=== PATIENT | female | born 1950 | race Caucasian/White ===

== ENCOUNTER → 2016-08-12 | Outpatient (CLI) | payer OTHER ==
[~2016-08-12] MED LIST: ASPI81TA85 PO; ATOR1TAB19 PO; CLIN1GEL5 EXT; REST0.05 OU; VIAC8.5C PO; VITA500C24 PO
--- NOTE | 2016-08-17 08:59 | DEXA ---
AP SPINE L1 - L4 1.159 -0.3 1.2 LT FEMUR TOTAL 0.889 -0.9 0.1 RT FEMUR TOTAL 0.935 -0.6 0.5 TOTAL BODY TOTAL OTHER DUAL FEMUR FRAX* ASSESSMENT Risk factors: History of fracture (adult). 10 year probability of fracture Major osteoporotic fracture 16.9 % Hip fracture 0.4 % COMMENTS: Normal bone densitometry of the spine. There is low bone density of the hips. The decreased density of the spine does represent a significant change. The decreased density of the left hip does represent significant change. The increased density of the right hip does represent a significant change. The density of the spine has decreased 9.9% since the initial exam on 2001. The spine density has decreased 7.8% since the most recent exam on 08/02/2014. The density of the left hip has decreased 9.2% since the initial exam on 2001. The density of the left hip has decreased 5.0% since the most recent exam on . The density of the right hip has decreased 4.3% since the initial exam on 2001. The density of the right hip has increased 2.7% since the most recent exam on . FOLLOW-UP: Recommendation for the next bone density exam: 2 years. HARSHAL
== END ==
LOC: M WHC 07:42
PROVIDERS: ATTEND Nurse Practitioner Adult Health
DX: M85.80 Other specified disorders of bone density and structure, unspecified site (principal)

== ENCOUNTER → 2016-08-12 | Outpatient (CLI) | payer OTHER ==
--- NOTE | 2016-08-12 10:27 | REPMRS ---
Patient History The patient states she had a clinical breast exam in July 2016. Patient has history of breast cancer at age 45. No known family history of cancer. Digital Mammo Screening Bilat: August 12, 2016 - Exam #: [id number] Bilateral CC and MLO view(s) were taken. Technologist: Reyna Pedroza, Technologist Prior study comparison: August 06, 2015, bilateral digital mammo screening bilat performed at [facility]. July 10, 2014, bilateral digital mammo screening bilat performed at [facility]. FINDINGS: The breast tissue is heterogeneously dense. This may lower the sensitivity of mammography. There has been no change in the appearance of the mammogram from the prior studies. There is a moderate amount of residual fibroglandular tissue which is fairly symmetric. There is no interval development of dominant mass, areas of architectural distortion, or clustered microcalcification typical of malignancy. ASSESSMENT: BI-RADS/ACR category 1 mammogram. Negative. Recommendation Routine screening mammogram in 1 year (for women over age 40). This mammogram was interpreted with the aid of an FDA-approved computer-aided dectection system. Electronically Signed By: Ilya Cheng MD 08/12/16 3513
== END ==
LOC: M RAD 08:46
PROVIDERS: ATTEND Nurse Practitioner Adult Health
DX: Z12.31 Encounter for screening mammogram for malignant neoplasm of breast (principal); Z85.3 Personal history of malignant neoplasm of breast

== ENCOUNTER → 2016-11-02 | Outpatient (REF) | payer OTHER | LOC: M LAB REF 11:04 | PROVIDERS: ATTEND Nurse Practitioner Adult Health | DX: R30.0 Dysuria (principal) ==

== ENCOUNTER → 2017-08-23 | Outpatient (CLI) | payer MEDICARE, OTHER | LOC: M WHC 10:32 | DX: Z12.31 Encounter for screening mammogram for malignant neoplasm of breast (principal); Z85.3 Personal history of malignant neoplasm of breast; Z92.21 Personal history of antineoplastic chemotherapy; Z92.3 Personal history of irradiation; Z98.890 Other specified postprocedural states | CPT/HCPCS: 76830 ==

== ENCOUNTER → 2017-08-24 | Outpatient (CLI) | payer MEDICARE, OTHER | LOC: M LRY 10:33 | DX: M25.552 Pain in left hip (principal) | CPT/HCPCS: 73502; G0463 ==

== ENCOUNTER → 2018-03-20 | Outpatient (CLI) | payer MEDICARE, OTHER | LOC: M LRY 09:39 | DX: M25.712 Osteophyte, left shoulder (principal); M25.512 Pain in left shoulder | CPT/HCPCS: 73030; G0463 ==

== ENCOUNTER → 2018-12-08 | Outpatient (REF) | payer MEDICARE, OTHER ==
[~2018-12-08] MED LIST changes: -VIAC8.5C PO; +VIACTIV 500-5001 CHW PO
== END ==
LOC: M LAB LCGH 13:21
PROVIDERS: ATTEND Obstetrics & Gynecology
DX: Z01.411 Encounter for gynecological examination (general) (routine) with abnormal findings (principal)

== ENCOUNTER → 2019-01-01 | Outpatient (CLI) | payer MEDICARE, OTHER ==
[~2019-01-01] MED LIST changes: +HAIR1CHW PO; +OCUVTAB4 PO; +OMEP40CA97 PO; +VIAC1CHW PO
--- NOTE | 2019-01-01 10:51 | REP ---
BILATERAL SCREENING DIGITAL MAMMOGRAM WITH 3D TOMOSYNTHESIS: There are no palpable abnormalities or other breast complaints. The the patient states she had a clinical breast examination there is, 2018. The the patient states she performs self-breast examinations four times per year. The Tyrer Cuzick Score is: NA. The patient has a history of left breast carcinoma at age 34. Comparisons are 07/10/2014 and 08/06/2015. The breasts are heterogeneously dense, which could obscure small masses. There is no dominant mass, micro calcific cluster or architectural distortion that would indicate malignancy. There are chronic post-treatment changes in the left breast, unchanged. There are no additional findings on 3D tomosynthesiss. There is no change from the prior studies. Impression: BIRADS/ACR category 2 mammogram. Nine findings. Recommendation: Routine annual screening mammography. Because of the increased breast density, annual adjunctive breast MRI in addition to screening mammography is recommended. These can be performed at alternating six month intervals. This mammogram was interpreted with the aid of a FDA approved computer-aided detection system. A. Negative mammogram reports should not delay biopsy if a dominant or clinically suspicious mass is present. B. Not all breast cancers are identified by mammography or tomosynthesis. C. Adenosis and dense breasts may obscure an underlying neoplasm. Patient letter M1 dense breasts. Electronically Signed by Ilya Barrios MD 01/01/2019 10:43 A
== END ==
LOC: M WHC 08:40
DX: Z12.31 Encounter for screening mammogram for malignant neoplasm of breast (principal)

== ENCOUNTER → 2019-03-01 | Outpatient (CLI) | payer MEDICARE, OTHER ==
[~2019-03-01] MED LIST changes: -HAIR1CHW PO; -OCUVTAB4 PO; -OMEP40CA97 PO; -VIAC1CHW PO
[2019-03-01 11:10] LABS: HEMATOCRIT 41.3 % (36.0-47.0); HEMOGLOBIN 12.7 g/dl (12.0-15.5); MEAN CORPUSCULAR HEMOGLOBIN 27.6 pg (27.0-33.0); MEAN CORPUSCULAR HGB CONC 30.8 g/dl (32.0-36.5); MEAN CORPUSCULAR VOLUME 89.8 fl (80.0-96.0); PLATELET COUNT, AUTOMATED 230 10^3/uL (150-450)
[2019-03-03 00:08] LABS: ENDOMYSIAL ABY IgA Negative (Negative); TISSUE TRANSGLUTAMINASE IgA <2 U/mL (0-3); TISSUE TRANSGLUTAMINASE IgG <2 U/mL (0-5)
== END ==
LOC: M LAB 09:51
PROVIDERS: ATTEND Nurse Practitioner
DX: K20.9 Esophagitis, unspecified (principal); R12 Heartburn

== ENCOUNTER 2019-06-21 13:36 | Emergency (ER) | payer MEDICARE, OTHER ==
[~2019-06-21] VITALS: Ht 157.5 cm; Wt 71.0 kg
[~2019-06-21 13:36] MED LIST changes: +HAIR1CHW PO; +OCUVTAB4 PO; +OMEP40CA97 PO; +VIAC1CHW PO
--- NOTE | 2019-06-21 15:00 | REP ---
Portable chest x-ray: Single view. History: Chest pain. Comparison study: May 30, 2008. Findings: Monitoring electrodes are seen overlying the chest. There are surgical clips again noted in the soft tissues of the left axilla. Minimal linear fibrosis is seen at the bases. No infiltrate is seen. There is a dextroconvex curvature in the mid thoracic spine. The heart is not enlarged. Pulmonary vasculature is not increased. Impression: No acute disease. Minimal bibasilar linear fibrosis. Thoracic scoliosis. Electronically Signed by Michael Nichole MD 06/21/2019 08:06 P
[2019-06-21 15:03] LABS: BASO % 0.7 % (0.0-1.0); EOS # 0.2 10^3/uL (0.0-0.5); EOS % 3.4 % (0.0-3.0); HEMATOCRIT 38.9 % (36.0-47.0); HEMOGLOBIN 12.6 g/dl (12.0-15.5); LYMPH # 1.7 10^3/uL (1.5-5.0); MEAN CORPUSCULAR HGB CONC 32.4 g/dl (32.0-36.5); MEAN CORPUSCULAR VOLUME 86.4 fl (80.0-96.0); MONO # 0.6 10^3/uL (0.0-0.8); MONO % 8.9 % (0.0-5.0); NEUTROPHILS # 3.6 10^3/uL (1.5-8.5); NEUTROPHILS % 58.7 % (36.0-66.0); PLATELET COUNT, AUTOMATED 195 10^3/uL (150-450); WHITE BLOOD COUNT 6.2 10^3/uL (4.0-10.0)
[2019-06-21 15:35] LABS: BLOOD UREA NITROGEN 17 MG/DL (7-18); CALCIUM LEVEL 9.2 MG/DL (8.8-10.2); CARBON DIOXIDE LEVEL 30 MEQ/L (21-32); CHLORIDE LEVEL 108 MEQ/L (98-107); CK-MB VALUE MASS 1.1 NG/ML (<3.6); CPK CREATINE PHOSPHOKINASE 82 U/L (26-192); CREATININE FOR GFR 0.98 MG/DL (0.55-1.30); GLOMERULAR FILTRATION RATE > 60.0 (>45); GLUCOSE, FASTING 97 MG/DL (70-100); MB/CK RELATIVE INDEX 1.34 (< OR =4); POTASSIUM SERUM 4.2 MEQ/L (3.5-5.1); SODIUM LEVEL 143 MEQ/L (136-145); TROPONIN I < 0.02 NG/ML (< 0.10)
[2019-06-21] MEDS ORDERED: ISOVUE-370 76% 100ML VIAL (Q9967) As Ordered ONE (16:00)
[2019-06-21 16:19] LABS: INR 0.98; PROTHROMBIN TIME 12.7 SECONDS (11.8-14.0)
[2019-06-21 16:20] LABS: PARTIAL THROMBOPLASTIN TIME 24.5 SECONDS (25.0-38.4)
[2019-06-21 17:28] VITALS: BP 141/62
--- NOTE | 2019-06-21 17:32 | REP ---
CT pulmonary angiogram: With IV contrast. History: Chest pain, possible pulmonary embolus. Comparison studies: Comparison chest CT study July 22, 2009. Contrast dose: 75 mL of Isovue [address] technique: Helical scanning is acquired and overlapping 1.5 mm and contiguous 3 mm axial images are reformatted. In addition, maximum intensity projection and multiplanar re-formation images are generated in sagittal and coronal imaging projections. CT pulmonary angiographic findings: There is good opacification in the pulmonary arterial tree. There is no CT evidence of pulmonary embolism. Thoracic aorta shows no evidence of aneurysm or dissection. There is a very small sliding-type hiatal hernia. No pleural or pericardial effusion is seen. No hilar or mediastinal mass or adenopathy is observed. There is minimal linear fibrosis in the left lung base. There are subpleural fibrotic changes along the left anterolateral chest wall with postoperative changes in the overlying left breast suggesting postradiation change, post treatment for left breast carcinoma. No bony destructive or blastic change is appreciated. There is a mild dextroconvex thoracic curvature. No adrenal lesion is seen. The visualized upper abdominal structures are unremarkable. No pulmonary nodule or mass lesion is seen. No focal infiltrate is observed. Impression: No CT evidence of pulmonary embolus. Post left breast lumpectomy and radiation therapy treatment changes with minimal linear fibrosis along the left anterolateral chest wall. Small sliding hiatal hernia. Otherwise no acute disease. Electronically Signed by Michael Nichole MD 06/21/2019 08:13 P
--- NOTE | 2019-06-21 21:11 | ECGEPIP ---
[facility] - ED Test Date: 2019-06-21 Pat Name: KARELY CHU Department: Room: - Gender: Female Picture Hanger: : 1950 Requested By: Hien Alonso Order Number: [id number] Reading MD: Paolo Rodriguez Measurements Intervals Manning Rate: 100 P: 41 MD: 162 QRS: -19 QRSD: 97 T: 29 QT: 347 QTc: 447 Interpretive Statements SINUS TACHYCARDIA POSSIBLE LEFT ATRIAL ENLARGEMENT POOR R WAVE PROGRESSION NO PRIORS FOR COMPARISON INCOMPLETE RIGHT BUNDLE BRANCH BLOCK Electronically Signed on 06-21-2019 21:11:40 EST by Paolo Rodriguze
== END 2019-06-21 17:30 | disposition home or self-care (01) ==
LOC: M ED 13:36
DX: R07.89 Other chest pain (principal); R00.0 Tachycardia, unspecified; I45.19 Other right bundle-branch block; M41.84 Other forms of scoliosis, thoracic region; Z85.3 Personal history of malignant neoplasm of breast; Z92.21 Personal history of antineoplastic chemotherapy; Z92.3 Personal history of irradiation; Z79.82 Long term (current) use of aspirin; Z79.899 Other long term (current) drug therapy; Z88.1 Allergy status to other antibiotic agents; Z91.018 Allergy to other foods
CPT/HCPCS: 71045; 71275; 80048; 82550; 82553; 84484; 85025; 85610; 85730; 93005; 93041; 94760; 99285; Q9967

== ENCOUNTER → 2019-12-05 | Outpatient (CLI) | payer MEDICARE, OTHER ==
[~2019-12-05] MED LIST changes: -ASPI81TA85 PO; +ASPI81TA86 PO
--- NOTE | 2020-01-11 11:03 | REP ---
BILATERAL LOWER EXTREMITY ARTERIAL DOPPLER ULTRASOUND HISTORY: Atherosclerosis. Intermittent claudication bilateral legs. FINDINGS: Ankle brachial indices are normal measured at 1.14 on the right and 1.08 on the left. Mild plaquing is seen bilaterally. Triphasic and biphasic waveforms are noted throughout, relatively normal. No high-grade stenosis or occlusion is seen. BILATERAL LOWER EXTREMITY ARTERIAL DOPPLER VELOCITY PSV RIGHT (cm/s) PSV LEFT (cm/s) NURSE FIRST AID 104 144 Profunda 80 70 Proximal SFA 113 101 Mid-SFA 97 105 Distal SFA 73 78 Popliteal 58/69 56/64 Proximal LAILA 94 49 Tibioperoneal trunk 69 58 Proximal TOWEL HEMMER 79 72 Distal TOWEL HEMMER 88 66 Distal LAILA 122 81 MTDD
== END ==
LOC: M RAD 12:17
PROVIDERS: ATTEND Physician Assistant
DX: I70.213 Atherosclerosis of native arteries of extremities with intermittent claudication, bilateral legs (principal)

== ENCOUNTER → 2019-12-20 | Outpatient (CLI) | payer MEDICARE, OTHER ==
--- NOTE | 2020-01-15 12:48 | REPPI ---
LEFT RIB SERIES CLINICAL: Left-sided rib pain. TECHNIQUE: Frontal view of the chest with four views of the left hemithorax. FINDINGS: Frontal view of the chest demonstrates chronic scoliosis and no acute cardiopulmonary process. Multiple views of the left hemithorax demonstrates no obvious acute left rib fracture. IMPRESSION: No evidence for left rib fracture or pathology. MTDD
== END ==
LOC: M PLAIMG 08:11
DX: R07.81 Pleurodynia (principal)

== ENCOUNTER → 2019-12-20 | Outpatient (CLI) | payer MEDICARE, OTHER ==
--- NOTE | 2020-01-09 13:15 | DEXA ---
AP SPINE L1 - L4 1.177 -0.1 1.5 LT FEMUR TOTAL 0.907 -0.8 0.5 LT NECK 0.826 -1.5 0.0 RT FEMUR TOTAL 0.937 -0.6 0.8 RT NECK 0.835 -1.5 0.1 TOTAL BODY TOTAL OTHER COMMENTS: Normal bone densitometry of the spine. There is low bone density of the hips. The increased density of the spine does not represent a significant change. The increased density of the left hip does represent significant change. The increased density of the right hip does represent significant change. The density of the spine has decreased 8.5% since the initial exam on 05/23/2001. The increased 1.6% since the most recent exam on 08/12/2016. The density of the left hip has decreased 7.4% since the initial exam on 05/23/2001. The density of the left hip has increased 2.0% since the most recent exam on 08/12/2016. The density of the right hip has decreased 4.1% since the initial exam on 05/23/2001. The density of the right hip has increased 0.2% since the most recent exam on 08/12/2016. FOLLOW-UP: Recommendation for the next bone density exam: 2 years. HARSHAL
--- NOTE | 2020-01-15 12:51 | REP ---
NONVASCULAR EXTREMITY ULTRASOUND CLINICAL: Palpable mass under left breast. TECHNIQUE: Real-time blanchard scale and color Doppler evaluation using linear high frequency transducer. FINDINGS: Directed ultrasound examination at the site of presumed palpable mass demonstrates normal subcutaneous tissue and musculature. No abnormal fluid collection or mass lesion. No obvious discrete lipoma. IMPRESSION: No obvious abnormality by direct sonographic evaluation. MTDD
== END ==
LOC: M WHC 07:16
DX: N95.8 Other specified menopausal and perimenopausal disorders (principal); D17.9 Benign lipomatous neoplasm, unspecified; M85.88 Other specified disorders of bone density and structure, other site; M85.851 Other specified disorders of bone density and structure, right thigh; R29.898 Other symptoms and signs involving the musculoskeletal system

== ENCOUNTER → 2020-01-03 | Outpatient (CLI) | payer MEDICARE, OTHER ==
--- NOTE | 2020-01-03 11:02 | REPMRS ---
Patient History The patient states she had a clinical breast exam in 2019. Family history of endometrial cancer at age 50 or over in mother, breast cancer at age 68 in sister, breast cancer at age 30 in niece. Lumpectomy of the left breast, 1995. Malignant lumpectomy of the left breast, 1995. Radiation therapy of the left breast, 1995. No Hormone Replacement Therapy Digital Woman Screen Mammo: January 03, 2020 - Exam #: [id number] Bilateral CC and MLO view(s) were taken. Technologist: Jacquelin Bobby, Technologist Prior study comparison: January 01, 2019, bilateral digital woman screen mammo performed at [facility]. August 23, 2017, digital woman screen mammo performed at [facility]. August 12, 2016, bilateral digital mammo screening bilat, performed at [facility]. FINDINGS: The breast tissue is heterogeneously dense. This may lower the sensitivity of mammography. The Volpara volumetric breast density category is: C. There are stable post treatment changes in the left breast. There is a moderate amount of heterogeneously dense fibroglandular tissue which is fairly symmetric. There is no interval development of dominant mass, architectural distortion, or grouped microcalcification typical of malignancy. There has been no change in the appearance of the mammogram from the prior studies. 3-D tomosynthesis shows no additional findings. Assessment: BI-RADS/ACR category 2 mammogram. Benign Findings. Recommendation Routine screening mammogram of both breasts in 1 year (for women over age 40). This mammogram was interpreted with the aid of an FDA-approved computer-aided dectection system. Electronically Signed By: Tom Nichole MD 01/03/20 1537
== END ==
LOC: M WHC 08:41
DX: Z12.31 Encounter for screening mammogram for malignant neoplasm of breast (principal); Z80.49 Family history of malignant neoplasm of other genital organs; Z85.3 Personal history of malignant neoplasm of breast; Z92.3 Personal history of irradiation

== ENCOUNTER → 2021-01-08 | Outpatient (CLI) | payer MEDICARE, OTHER ==
[~2021-01-08] MED LIST changes: +OMEP40CA4 PO; -OMEP40CA97 PO
--- NOTE | 2021-01-08 09:28 | REPMRS ---
Patient History The patient states she had a clinical breast exam in December 2020. Patient has history of cancer in the left breast at age 44, had previous chemotherapy at age 44, has history of other cancer at age 34, and is nulliparous. Family history of endometrial cancer at age 50 or over in mother, breast cancer at age 68 in sister, breast cancer at age 30 in niece. Lumpectomy of the left breast, 1995. Malignant lumpectomy of the left breast, 1995. Radiation therapy of the left breast, 1995. Took tamoxifen for 5 years. Patient states no breast complaints today. Patient has signed MRS History Sheet. Digital Woman Screen Mammo: January 08, 2021 - Exam #: [id number] Bilateral CC and MLO view(s) were taken. Technologist: Brooklyn Carlson, Technologist Prior study comparison: January 03, 2020, bilateral digital woman screen mammo performed at [facility]. January 01, 2019, bilateral digital woman screen mammo performed at [facility]. August 23, 2017, digital woman screen mammo performed at [facility]. FINDINGS: The breast tissue is heterogeneously dense. This may lower the sensitivity of mammography. The Volpara volumetric breast density category is: C. There are stable post treatment changes in the left breast. There is a moderate amount of heterogeneously dense fibroglandular tissue which is fairly symmetric. There is no interval development of dominant mass, architectural distortion, or grouped microcalcification typical of malignancy. There has been no change in the appearance of the mammogram from the prior studies. 3-D tomosynthesis shows no additional findings. Assessment: BI-RADS/ACR category 2 mammogram. Benign Findings. Recommendation Routine screening mammogram of both breasts in 1 year (for women over age 40). This mammogram was interpreted with the aid of an FDA-approved computer-aided dectection system. Electronically Signed By: Tom Nichole MD 01/08/21 0928
== END ==
LOC: M WHC 07:42
DX: Z12.31 Encounter for screening mammogram for malignant neoplasm of breast (principal); Z85.3 Personal history of malignant neoplasm of breast; Z92.21 Personal history of antineoplastic chemotherapy; Z80.49 Family history of malignant neoplasm of other genital organs; Z80.3 Family history of malignant neoplasm of breast

== ENCOUNTER → 2021-06-18 | Outpatient (CLI) | payer MEDICARE, OTHER ==
[~2021-06-18] MED LIST changes: +CVS-161 PO; +FAMO20TA PO; +OMEP10CASR PO
== END ==
LOC: M LABSMTC 09:44
PROVIDERS: ATTEND Anesthesiology
DX: Z11.52 Encounter for screening for COVID-19 (principal)

== ENCOUNTER 2021-06-23 10:39 | Day surgery (SDC) | payer MEDICARE, OTHER ==
[~2021-06-23] VITALS: Ht 154.9 cm; Wt 67.6 kg
[~2021-06-23 10:39] MED LIST changes: +NS 1,000 ML IV ONE
[2021-06-23] MEDS ORDERED: propofoL 200 MG/20 ML VIAL As Ordered ONE ×2 (11:39→11:40)
[2021-06-23] MEDS ORDERED: LIDOCAINE 2% 100MG/5ML SDV (FOR ANES.) As Ordered ONE (11:40)
[2021-06-23] MEDS ORDERED: LABETALOL 100MG/20ML VIAL As Ordered ONE (13:43)
[2021-06-23 14:20] VITALS: BP 118/76
== END 2021-06-23 14:34 | disposition home or self-care (01) ==
LOC: M OPP 10:39
PROVIDERS: ATTEND Surgery
DX: K62.5 Hemorrhage of anus and rectum (principal); R12 Heartburn; M19.90 Unspecified osteoarthritis, unspecified site; Z85.3 Personal history of malignant neoplasm of breast; Z79.899 Other long term (current) drug therapy

== ENCOUNTER → 2022-01-12 | Outpatient (CLI) | payer MEDICARE, OTHER ==
[~2022-01-12] MED LIST changes: -NS 1,000 ML IV ONE
== END ==
LOC: M WHC 08:39
PROVIDERS: ATTEND Obstetrics & Gynecology
DX: Z12.31 Encounter for screening mammogram for malignant neoplasm of breast (principal); Z85.3 Personal history of malignant neoplasm of breast

== ENCOUNTER → 2022-05-14 | Outpatient (CLI) | payer MEDICARE, OTHER ==
[2022-05-14 13:43] LABS: ALKALINE PHOSPHATASE 81 U/L (46-116); ALT/SGPT 24 U/L (7.0-40); AST/SGOT 28 U/L (<34); BILIRUBIN,TOTAL 0.5 MG/DL (0.3-1.2); BLOOD UREA NITROGEN 23 MG/DL (9-23); CALCIUM LEVEL 8.9 MG/DL (8.3-10.6); CARBON DIOXIDE LEVEL 26 MMOL/L (20-31); CHLORIDE LEVEL 108 MMOL/L (98-107); CHOLESTEROL LEVEL 140 MG/DL (<200); CHOLESTEROL RISK RATIO 2.25 (<5); CREATININE FOR GFR 0.95 MG/DL (0.55-1.30); GLOMERULAR FILTRATION RATE > 60.0 (>45); GLUCOSE, FASTING 91 MG/DL (74-106); HDL CHOLESTEROL 62.1 MG/DL (>40); LDL CHOLESTEROL 71.5 MG/DL (<100); NON-HDL-C 78 MG/DL; POTASSIUM SERUM 4.5 MMOL/L (3.5-5.1); SODIUM LEVEL 142 MMOL/L (136-145); TOTAL PROTEIN 7.1 G/DL (5.7-8.2); TRIGLYCERIDES LEVEL 32 MG/DL (<150)
== END ==
LOC: M WUC 09:36
PROVIDERS: ATTEND Physician Assistant
DX: E78.5 Hyperlipidemia, unspecified (principal); R06.02 Shortness of breath

== ENCOUNTER → 2022-07-06 | Outpatient (CLI) | payer MEDICARE, OTHER ==
[2022-07-06 17:59] LABS: BASO % 0.6 % (0.0-1.0); EOS # 0.1 10^3/uL (0.0-0.5); EOS % 1.1 % (0.0-3.0); HEMATOCRIT 39.5 % (36.0-47.0); HEMOGLOBIN 12.3 g/dl (12.0-15.5); LYMPH # 1.4 10^3/uL (1.5-5.0); LYMPH % 18.9 % (24.0-44.0); MEAN CORPUSCULAR HEMOGLOBIN 27.6 pg (27.0-33.0); MEAN CORPUSCULAR HGB CONC 31.1 g/dl (32.0-36.5); MEAN CORPUSCULAR VOLUME 88.8 fl (80.0-96.0); MONO # 0.5 10^3/uL (0.0-0.8); NEUTROPHILS # 5.2 10^3/uL (1.5-8.5); NEUTROPHILS % 71.8 % (36.0-66.0); PLATELET COUNT, AUTOMATED 205 10^3/uL (150-450); RED BLOOD COUNT 4.45 10^6/uL (4.00-5.40); WHITE BLOOD COUNT 7.3 10^3/uL (4.0-10.0)
[2022-07-06 18:09] LABS: C REACTIVE PROTEIN QUANTITATIV < 0.40 MG/DL (<1.0)
[2022-07-06 18:11] LABS: RHEUMATOID FACTOR QUANT < 3.5 IU/ML (<14)
[2022-07-06 18:32] LABS: ERYTHROCYTE SEDIMENTATION RATE 36 mm/hr (0-30)
== END ==
LOC: M PLALAB 15:49
PROVIDERS: ATTEND Orthopaedic Surgery
DX: M47.892 Other spondylosis, cervical region (principal)

== ENCOUNTER → 2023-08-02 | Outpatient (CLI) | payer MEDICARE, OTHER | LOC: M RAD 11:53 | PROVIDERS: ATTEND Chiropractor | DX: M99.03 Segmental and somatic dysfunction of lumbar region (principal); M51.36 Other intervertebral disc degeneration, lumbar region; M99.01 Segmental and somatic dysfunction of cervical region; M54.13 Radiculopathy, cervicothoracic region; M99.02 Segmental and somatic dysfunction of thoracic region; M51.34 Other intervertebral disc degeneration, thoracic region; M85.88 Other specified disorders of bone density and structure, other site; M41.84 Other forms of scoliosis, thoracic region ==

== ENCOUNTER → 2024-01-16 | Outpatient (CLI) | payer MEDICARE | LOC: M WHC 07:37 | PROVIDERS: ATTEND Nurse Practitioner Family | DX: Z12.31 Encounter for screening mammogram for malignant neoplasm of breast (principal); R92.333 Mammographic heterogeneous density, bilateral breasts; Z85.3 Personal history of malignant neoplasm of breast ==

== ENCOUNTER → 2024-07-30 | Outpatient (CLI) | payer MEDICARE | LOC: M WUC 13:21 | PROVIDERS: ATTEND Physician Assistant | DX: R06.02 Shortness of breath (principal) ==

== ENCOUNTER 2024-10-26 08:38 | Day surgery (SDC) | payer MEDICARE ==
[~2024-10-26] VITALS: Ht 157.5 cm; Wt 66.0 kg
[~2024-10-26 08:38] MED LIST changes: +AMLO1TAB24 PO; +BIOT5CAP8 PO; +FURO20TA2 PO; +POTA-150 PO; +VITATAB73 PO
[2024-10-26] MEDS ORDERED: LIDOCAINE 2% 100 MG/5 ML SDV (FOR ANES.) As Ordered ONE (08:58)
[2024-10-26 10:21] VITALS: BP 98/63; O2SAT 98
== END 2024-10-26 10:30 | disposition home or self-care (01) ==
LOC: M OPP 08:38
PROVIDERS: ATTEND Surgery
DX: K44.9 Diaphragmatic hernia without obstruction or gangrene (principal); K31.7 Polyp of stomach and duodenum; K31.89 Other diseases of stomach and duodenum; K20.90 Esophagitis, unspecified without bleeding; Z88.1 Allergy status to other antibiotic agents; Z91.018 Allergy to other foods; Z79.899 Other long term (current) drug therapy
CPT/HCPCS: 43239; 88305; J3010

== ENCOUNTER → 2024-11-22 | Outpatient (CLI) | payer MEDICARE ==
[2024-11-22 10:11] LABS: BASO # 0.1 10^3/uL (0.0-0.2); BASO % 1.0 % (0.0-1.0); EOS # 0.2 10^3/uL (0.0-0.5); EOS % 2.9 % (0.0-3.0); LYMPH # 1.4 10^3/uL (1.5-5.0); LYMPH % 26.8 % (24.0-44.0); MONO # 0.5 10^3/uL (0.0-0.8); MONO % 8.6 % (2.0-8.0); NEUTROPHILS # 3.2 10^3/uL (1.5-8.5); NEUTROPHILS % 60.5 % (36.0-66.0); PLATELET COUNT, AUTOMATED 261 10^3/uL (150-450)
[2024-11-22 10:23] LABS: ERYTHROCYTE SEDIMENTATION RATE 28 mm/hr (0-30)
[2024-11-22 10:44] LABS: RHEUMATOID FACTOR QUANT < 3.5 IU/ML (<14)
[2024-11-22 10:45] LABS: ALT/SGPT 20 U/L (7.0-40); AST/SGOT 24 U/L (<34); CALCIUM LEVEL 9.5 MG/DL (8.3-10.6); CARBON DIOXIDE LEVEL 28 MMOL/L (20-31); CHLORIDE LEVEL 105 MMOL/L (98-107); CREATININE FOR GFR 0.92 MG/DL (0.55-1.30); FREE T4 1.07 NG/DL (0.89-1.76); GLOMERULAR FILTRATION RATE 66.2 (>39); POTASSIUM SERUM 4.3 MMOL/L (3.5-5.1); SODIUM LEVEL 142 MMOL/L (136-145)
[2024-11-22 10:47] LABS: VITAMIN B12 LEVEL 479 PG/ML (211-911)
[2024-11-22 11:07] LABS: ESTIMATED AVERAGE GLUCOSE 117.0 MG/DL (60-110)
[2024-11-23 10:52] LABS: T P ELECTROPHORESIS SO 7.5 g/dL (6.1-8.1)
[2024-11-27 02:28] LABS: VITAMIN E(ALPHA TOCOPHEROL) 24.1 mg/L (5.7-19.9); VITAMIN E(GAMMA TOCOPHEROL) 2.2 mg/L (<=4.3)
[2024-11-27 07:36] LABS: ALBUMIN SPEP 4.3 g/dL (3.8-4.8); ALPHA-1-GLOBULINS SO 0.3 g/dL (0.2-0.3); ALPHA-2-GLOBULINS SO 0.9 g/dL (0.5-0.9); BETA 2 GLOBULIN 0.4 g/dL (0.2-0.5); BETA-GLOBULIN SO 0.5 g/dL (0.4-0.6); GAMMA GLOBULINS SO 1.2 g/dL (0.8-1.7)
[2024-11-27 18:34] LABS: VITAMIN B1 LEVEL WHOLE BLOOD 115 nmol/L (78-185)
== END ==
LOC: M LAB 09:15
PROVIDERS: ATTEND Psychiatry & Neurology Neurology
DX: E11.40 Type 2 diabetes mellitus with diabetic neuropathy, unspecified (principal); E53.8 Deficiency of other specified B group vitamins; E07.9 Disorder of thyroid, unspecified

== ENCOUNTER → 2025-01-17 | Outpatient (CLI) | payer MEDICARE | LOC: M WHC 08:42 | PROVIDERS: ATTEND Nurse Practitioner Family | DX: Z12.31 Encounter for screening mammogram for malignant neoplasm of breast (principal) ==